=== PATIENT | female | born 1970 | race Hispanic/Latino ===

== ENCOUNTER 2024-03-05 12:18 | Observation (INO) | payer SELFPAY ==
[~2024-03-05 12:18] MED LIST: Iopamidol-370 76% 500 ML MDV (1 ML CHARGE) ONE
[2024-03-05 12:53] LABS: #Basophils 0.04 10x3/uL (0.0-0.2); %Basophils 0.8 % (0.0-1.0); %Eosinophils 1.9 % (0.0-10.0); %Monocytes 6.9 % (0.0-10.0); %Neutrophils 56.6 % (42.0-75.0); Hematocrit 44.4 % (36.0-47.0); Mean Corpuscular HGB CONC 33.8 g/dL (32.0-36.0); Mean Corpuscular Volume 82.8 fL (78.0-98.0); Mean Platelet Volume 9.8 fL (7.4-10.4); Platelet Count 174 10x3/uL (130-400); RBC Distribution Width 12.1 % (11.5-14.5); Red Blood Cell (RBC) Count 5.36 mill/uL (4.20-5.40)
[2024-03-05 13:08] LABS: ALT (SGPT) 44 U/L (Less than 34); AST (SGOT) 26 U/L (11-34); Albumin 4.2 g/dL (3.1-4.5); Alkaline Phosphatase 97 U/L (40-110); Anion Gap 10 mmol/L (10-20); BUN (Urea Nitrogen) 14 mg/dL (9.8-20.1); Calc. Creatinine Clearance 0 mL/min (70-130); Calcium 9.4 mg/dL (7.8-10.44); Carbon Dioxide 29 mmol/L (22-29); Chloride 106 mmol/L (98-107); Estimated GFR 106; Globulin 3.6 g/dL (2.4-3.5); Glucose 99 mg/dL (70-105); Potassium 4.2 mmol/L (3.5-5.1); Protein, Total 7.8 g/dL (6.0-8.3); Sodium 141 mmol/L (136-145)
[2024-03-05 13:14] LABS: Troponin I Less than 0.010 ng/mL (< 0.028)
[2024-03-05] MEDS ORDERED: Ketorolac Tromethamine 30 MG (1 mL) VIAL ONE (14:17)
[2024-03-05 14:37] LABS: Lipase 14 U/L (8-78); Magnesium 2.2 mg/dL (1.6-2.6)
[2024-03-05] MEDS ORDERED: Meclizine HCl 25 MG TAB ONE (15:01)
[2024-03-05] MEDS ORDERED: Acetaminophen 500 MG TAB ONE (15:01)
[2024-03-05] MEDS ORDERED: diphenhydrAMINE 50 MG/ML VIAL ONE (15:01)
[2024-03-05] MEDS ORDERED: Prochlorperazine 10 MG/2 ML VIAL ONE (15:05)
[2024-03-05] MEDS ORDERED: Acetaminophen 325 MG TAB PO PRN (19:03)
[2024-03-05] MEDS ORDERED: Ondansetron ODT 4 MG TAB PO PRN (19:03)
[2024-03-05 20:34] LABS: Hemoglobin A1c 5.7 % (4.0-6.0)
[2024-03-05 20:36] LABS: Cardiac Risk 5.6 (Less than 4.5)
[2024-03-06 01:09] VITALS: BMI 27.8
[2024-03-06 04:13] LABS: #Basophils 0.04 10x3/uL (0.0-0.2); %Basophils 0.8 % (0.0-1.0); %Eosinophils 2.3 % (0.0-10.0); %Lymphocytes 34.2 % (21.0-51.0); %Monocytes 8.2 % (0.0-10.0); %Neutrophils 54.1 % (42.0-75.0); Hematocrit 40.5 % (36.0-47.0); Hemoglobin 13.8 g/dL (12.0-16.0); Mean Corpuscular HGB CONC 34.1 g/dL (32.0-36.0); Mean Corpuscular Volume 82.3 fL (78.0-98.0); Mean Platelet Volume 10.1 fL (7.4-10.4); Platelet Count 163 10x3/uL (130-400); RBC Distribution Width 12.1 % (11.5-14.5); Red Blood Cell (RBC) Count 4.92 mill/uL (4.20-5.40)
[2024-03-06 04:34] LABS: Anion Gap 12 mmol/L (10-20); BUN (Urea Nitrogen) 14 mg/dL (9.8-20.1); Calc. Creatinine Clearance 125 mL/min (70-130); Calcium 9.1 mg/dL (7.8-10.44); Carbon Dioxide 25 mmol/L (22-29); Chloride 110 mmol/L (98-107); Estimated GFR 108; Glucose 96 mg/dL (70-105); Potassium 4.1 mmol/L (3.5-5.1); Sodium 143 mmol/L (136-145)
[2024-03-06] MEDS: Levothyroxine Sodium 100 MCG TAB PO SCH (06:02)
[2024-03-06] MEDS: Enoxaparin 40 MG (0.4 mL) SYRINGE SC SCH (09:15)
[2024-03-06 16:03] VITALS: BP 107/63; TEMP 97.5
== END 2024-03-06 18:21 | disposition home or self-care (01) ==
LOC: ERS 12:18 → 2SE 18:01
PROVIDERS: ADMIT Student in an Organized Health Care Education/Training Program; ATTEND Student in an Organized Health Care Education/Training Program
DX: H81.10 Benign paroxysmal vertigo, unspecified ear (principal); R73.03 Prediabetes; E78.1 Pure hyperglyceridemia; E03.9 Hypothyroidism, unspecified; K21.9 Gastro-esophageal reflux disease without esophagitis; Z90.49 Acquired absence of other specified parts of digestive tract; Z90.710 Acquired absence of both cervix and uterus; Z90.721 Acquired absence of ovaries, unilateral; Z79.890 Hormone replacement therapy; Z79.899 Other long term (current) drug therapy
CPT/HCPCS: 36415; 70496; 70498; 71046; 80048; 80053; 80061; 83036; 83690; 83735; 83880; 84443; 84484; 85025; 93005; 96372; 96374; 96375; G0378; J0780; J1200; J1650; J1885; Q9967